=== PATIENT | female | born 2000 | race African-American/Black ===

== ENCOUNTER 2018-03-22 17:18 | Emergency (ER) | payer OTHER ==
--- NOTE | 2018-03-22 17:26 | PDOC ---
Rapid Medical Evaluation Chief Complaint: Respiratory Time Seen by Provider: 03/22/18 17:24 Medical Evaluation: 03/22/18 17:24 18 year old female with nasal confection, cough, bodyache x 3 days. denies fever / chills. PE: patient alert ox3. + nasal congestion A: URI P: patient to fast track for further management of care. Discharge Disposition - Diagnosis URI (upper respiratory infection) Qualifiers: URI type: unspecified viral URI Qualified Code(s): J06.9 - Acute upper respiratory infection, unspecified - Referrals - Patient Instructions - Post Discharge Activity
[2018-03-22 17:29] VITALS: BP 100/64; PULSE 102; TEMP 99.2; BMI 18.3
--- NOTE | 2018-03-22 18:07 | PDOC ---
History of Present Illness - General Chief Complaint: Respiratory Stated Complaint: BODYACHES, HEADACHE,COUGHING Time Seen by Provider: 03/22/18 17:24 History Source: Patient Exam Limitations: No Limitations - History of Present Illness Initial Comments: 03/22/18 18:04 c/o nasal congestion body aches for 2 days, no fever, pt states she called out of work needs a note for today and tomoroow. Pt denies SOB no abd pain . Past History - Past Medical History Allergies/Adverse Reactions: Allergies Allergy/AdvReac Type Severity Reaction Status Date / Time No Known Allergies Allergy Verified 03/22/18 17:25 Home Medications: Ambulatory Orders Fluticasone Prop 0.05% Nasal [Flonase -] 1 - 2 spray NS DAILY #1 spray.pump 01/30 Loratadine [Claritin -] 10 mg PO DAILY #7 tablet 03/22/18 COPD: No DVT: No Dementia: No - Immunization History Immunization Up to Date: Yes - Suicide/Smoking/Psychosocial Hx Smoking History: Never smoked Have you smoked in the past 12 months: No Information on smoking cessation initiated: No Drug/Substance Use Hx: Yes (MARIJUANA) Substance Use Type: Marijuana *Physical Exam - Vital Signs Last Vital Signs Temp Pulse Resp BP Pulse Ox 99.2 F 102 H 16 100/64 99 03/22/18 17:25 03/22/18 17:25 03/22/18 17:25 03/22/18 17:25 03/22/18 17:25 - Physical Exam General Appearance: Yes: Nourished, Appropriately Dressed HEENT: positive: EOMI, RYAN, TMs Normal, Pharynx Normal, Nasal Congestion. negative: Rhinorrhea Neck: positive: Supple. negative: Lymphadenopathy (R), Lymphadenopathy (L), Tender lateral Respiratory/Chest: positive: Lungs Clear, Normal Breath Sounds. negative: Chest Tender Cardiovascular: positive: Regular Rhythm, Regular Rate Gastrointestinal/Abdominal: positive: Normal Bowel Sounds, Soft. negative: Tender Musculoskeletal: positive: Normal Inspection Extremity: positive: Normal Capillary Refill, Normal Inspection, Normal Range of Motion Integumentary: positive: Normal Color, Dry, Warm Neurologic: positive: Fully Oriented, Alert, Normal Mood/Affect, Normal Response , Motor Strength 5/5 *DC/Admit/Observation/Transfer Diagnosis at time of Disposition: URI (upper respiratory infection) Qualifiers: URI type: unspecified viral URI Qualified Code(s): J06.9 - Acute upper respiratory infection, unspecified - Discharge Dispostion Disposition: HOME Condition at time of disposition: Good - Prescriptions Prescriptions: Fluticasone Prop 0.05% Nasal [Flonase -] 1 - 2 spray NS DAILY #1 spray.pump Loratadine [Claritin -] 10 mg PO DAILY #7 tablet - Referrals Referrals: Sara Bose [Primary Care Provider] - - Patient Instructions Additional Instructions: use the flonase nasal spray as directed, also take claritin drink pleanty of fluids take ibuprofen (over the counter advil, motrin ) for headache and body aches tea with honey and lemon return if any worse otherwise see your doctor next week - Post Discharge Activity Forms/Work/School Notes: Back to Work
== END 2018-03-22 18:20 | disposition home or self-care (01) ==
LOC: JERFT 17:18
DX: J06.9 Acute upper respiratory infection, unspecified (principal); B97.89 Other viral agents as the cause of diseases classified elsewhere
CPT/HCPCS: 99281-25

== ENCOUNTER 2019-05-03 13:41 | Emergency (ER) | payer OTHER ==
[2019-05-03 13:56] VITALS: BP 119/83; PULSE 75; TEMP 98.2; BMI 19.2
--- NOTE | 2019-05-03 14:18 | PDOC ---
History of Present Illness - General Chief Complaint: Ear Problem Stated Complaint: RT EAR TISSUE STUCK INSIDE Time Seen by Provider: 05/03/19 14:04 History Source: Patient Exam Limitations: No Limitations - History of Present Illness Is this a multiple visit Asthma Patient?: No Timing/Duration: reports: getting worse Severity: reports: mild Past History - Travel Traveled outside of the country in the last 30 days: No Close contact w/someone who was outside of country & ill: No - Past Medical History Allergies/Adverse Reactions: Allergies Allergy/AdvReac Type Severity Reaction Status Date / Time No Known Allergies Allergy Verified 05/03/19 13:52 Home Medications: Ambulatory Orders Fluticasone Prop 0.05% Nasal [Flonase -] 1 - 2 spray NS DAILY #1 spray.pump 01/30 Loratadine [Claritin -] 10 mg PO DAILY #7 tablet 03/22/18 COPD: No DVT: No Dementia: No - Immunization History Immunization Up to Date: Yes - Psycho Social/Smoking Cessation Hx Smoking History: Never smoked Have you smoked in the past 12 months: No Hx Alcohol Use: No Drug/Substance Use Hx: No Substance Use Type: Marijuana *Physical Exam - Vital Signs Last Vital Signs Temp Pulse Resp BP Pulse Ox 98.2 F 75 17 119/83 98 05/03/19 13:52 05/03/19 13:52 05/03/19 13:52 05/03/19 13:52 05/03/19 13:52 - Physical Exam General Appearance: Yes: Nourished, Appropriately Dressed. No: Apparent Distress HEENT: positive: RYAN, Normal ENT Inspection, Pharynx Normal, Nasal Congestion, Rhinorrhea. negative: TMs Normal (Left TM intact with good visualization, and johnson visible . unable to visualize right TM due to occlusion with a white paper substance consistent with Kleenex) Neck: positive: Supple, Lymphadenopathy (R), Lymphadenopathy (L). negative: Tender Respiratory/Chest: positive: Lungs Clear Gastrointestinal/Abdominal: positive: Soft. negative: Tender Integumentary: positive: Normal Color, Dry, Warm Neurologic: positive: telemetry registered nurse II-XII NML intact, Fully Oriented, Alert, Normal Mood/ Affect, Normal Response, Motor Strength 5/5 Discharge - Discharge Information Problems reviewed: Yes Clinical Impression/Diagnosis: Foreign body in right ear Qualifiers: Encounter type: initial encounter Qualified Code(s): T16.1XXA - Foreign body in right ear, initial encounter Condition: Stable Disposition: HOME - Admission No - Follow up/Referral - Patient Discharge Instructions Patient Printed Discharge Instructions: DI for Removal of Foreign Body From Ear Additional Instructions: Rest, lots of fluids; water, teas, soups Hot wet soaks to ear/hot packs may help relieve some pain Continue ibuprofen or Tylenol for pain and fevers followup with private physician / ENT doctor in 2-3 days Return to emergency department or see private physician immediately for swelling , redness, from ears, or fevers, - Post Discharge Activity
== END 2019-05-03 14:30 | disposition home or self-care (01) ==
LOC: JERFT 13:41
DX: T16.1XXA Foreign body in right ear, initial encounter (principal); X58.XXXA Exposure to other specified factors, initial encounter; Y93.89 Activity, other specified; Y92.89 Other specified places as the place of occurrence of the external cause; Y99.8 Other external cause status
CPT/HCPCS: 99281-25

== ENCOUNTER 2021-06-28 16:46 | Emergency (ER) | payer OTHER ==
[2021-06-28 17:10] VITALS: BP 108/68; PULSE 89; TEMP 98.2; BMI 20.1
== END 2021-06-28 18:26 | disposition home or self-care (01) ==
LOC: JERFT 16:46
DX: L03.111 Cellulitis of right axilla (principal); L03.112 Cellulitis of left axilla
CPT/HCPCS: 99283-25

== ENCOUNTER 2021-07-07 11:01 | Emergency (ER) | payer OTHER ==
[2021-07-07 11:55] VITALS: BP 111/78; PULSE 89; TEMP 98; BMI 20.7
[2021-07-07] MEDS ORDERED: ONDANSETRON 4 MG/2 ML VIAL IVPUSH ONE (12:39)
[2021-07-07] MEDS ORDERED: SODIUM CHLORIDE 1,000 ML IV STA (12:39)
[2021-07-07] MEDS ORDERED: FAMOTIDINE 20 MG/50 ML IVPB 20 MG/50 ML MG IVPB ONE ×2 (12:42→12:53)
[2021-07-07] MEDS ORDERED: ONDANSETRON 4 MG/2 ML VIAL ONE (12:53)
[2021-07-07 13:16] LABS: HEMATOCRIT 36.1 % (32.4-45.2); HEMOGLOBIN 12.1 GM/dL (10.7-15.3); MCH 27.8 pg (25.7-33.7); MCHC 33.5 g/dl (32.0-36.0); MEAN CELL VOLUME 82.9 fl (80-96); MEAN PLT VOLUME 7.7 fl (7.5-11.1); PLATELET COUNT 343 10^3/uL (134-434); RBC 4.36 M/mm3 (3.60-5.2); RDW 12.9 % (11.6-15.6); WHITE BLOOD COUNT 4.2 K/mm3 (4.0-10.0)
[2021-07-07 13:43] LABS: CALCIUM 9.5 mg/dL (8.5-10.1)
[2021-07-07 13:44] LABS: ALBUMIN 3.9 g/dl (3.4-5.0); BLOOD UREA NITROGEN 13.3 mg/dL (7-18)
[2021-07-07 13:47] LABS: CREATININE 0.9 mg/dL (0.55-1.3)
[2021-07-07 13:49] LABS: TOT PROT 8.4 g/dl (6.4-8.2)
[2021-07-07 13:52] LABS: BILIRUBIN,TOTAL 0.3 mg/dL (0.2-1)
[2021-07-08 07:08] LABS: SARS-CoV-2 NAA Detected (Not Detected)
== END 2021-07-07 17:58 | disposition home or self-care (01) ==
LOC: JER 11:01
PROC: 3E033GC Introduction of Other Therapeutic Substance into Peripheral Vein, Percutaneous Approach (ICD-10-PCS; principal; 2021-07-07)
DX: K52.9 Noninfective gastroenteritis and colitis, unspecified (principal); J06.9 Acute upper respiratory infection, unspecified
CPT/HCPCS: 36415; 80053; 83690; 85027; 99284-25; C9803; U0003; U0005

== ENCOUNTER 2023-07-28 16:12 | Emergency (ER) | payer OTHER ==
[2023-07-28 16:20] VITALS: BP 98/57; PULSE 74; RESP 18; TEMP 98.5; BMI 20.7
[2023-07-28 17:32] LABS: EPI CELLS >36 /uL (0-25.1); HYALINE CASTS 3 /uL (0-3.1); PH,URINE 5.5 (5.0-8.0); URINE APPEARANCE CLEAR; URINE BACTERIA 737 /uL (0-1359); URINE BILIRUBIN NEGATIVE (NEGATIVE); URINE COLOR YELLOW; URINE GLUCOSE (UA) NEGATIVE (NEGATIVE); URINE KETONE NEGATIVE (NEGATIVE); URINE LEUK ESTERASE NEGATIVE (NEGATIVE); URINE NITRITE NEGATIVE (NEGATIVE); URINE PROTEIN 1+ (NEGATIVE); URINE RBC 78 /uL (0-23.9); URINE UROBILINOGEN 0.2 mg/dL (0.2-1.0); URINE WBC 43 /uL (0-25.8)
[2023-07-28] MEDS ORDERED: NITROFURANTOIN MONOHYD/M-CRYST 100 MG CAPSULE PO ONE (17:54)
[2023-07-28] MEDS ORDERED: NITROFURANTOIN MACROCRYSTAL 50 MG CAPSULE (FP) ONE (18:06)
== END 2023-07-28 18:07 | disposition home or self-care (01) ==
LOC: JERFT 16:12
DX: R30.0 Dysuria (principal); N39.0 Urinary tract infection, site not specified
CPT/HCPCS: 81003; 84703; 87086; 99283-25

== ENCOUNTER 2025-02-25 18:56 | Emergency (ER) | payer OTHER ==
[2025-02-25 19:12] VITALS: TEMP 98.9; BMI 24.5
[2025-02-25] MEDS ORDERED: ONDANSETRON 4 MG/2 ML VIAL ONE (21:06)
[2025-02-25] MEDS ORDERED: ACETAMINOPHEN INJECTION 100 ML ONE (21:06)
[2025-02-25 21:07] LABS: ABSOLUTE IMMATURE GRANULOCYTES 0.02 x10^3/uL (0.0-0.031); BASOPHILS # 0.03 x10^3/uL (0.01-0.08); EOSINOPHIL % 1.2 % (0.7-5.8); EOSINOPHILS # 0.10 x10^3/uL (0.04-0.36); MCHC 31.6 g/dl (32.2-35.5); MEAN CELL VOLUME 89.1 fl (79.4-94.8); MEAN PLT VOLUME 9.5 fl (9.4-12.3); MONOCYTE # 1.08 x10^3/uL (0.24-0.86); MONOCYTE % 12.5 % (4.7-12.5); RDW 12.3 % (12.1-16.5)
[2025-02-25] MEDS: ACETAMINOPHEN 1000 MG/100 ML BAG IVPB ONE (21:18)
[2025-02-25] MEDS: LACTATED RINGERS SOLUTION 1000 ML INFUS.BAG IV ONE (21:18)
[2025-02-25] MEDS: ONDANSETRON 4 MG/2 ML VIAL IVPUSH ONE (21:19)
[2025-02-25 21:30] LABS: GLUCOSE,RANDOM 90.0 mg/dL (74-106)
[2025-02-25 21:31] LABS: TOT PROT 7.5 g/dl (6.4-8.2)
[2025-02-25 21:33] LABS: ALK PHOS 42.0 U/L (40-150); CO2 24.0 mmol/L (21-32)
[2025-02-25 21:36] LABS: CREATININE 1.24 mg/dL (0.55-1.3); EPI CELLS 12 /uL (0-25.1); HYALINE CASTS 0 /uL (0-3.1); SGOT/AST 34.0 U/L (5-34); SGPT/ALT 12.0 U/L (0-55); URINE APPEARANCE CLOUDY; URINE BACTERIA 49 /uL (0-1359); URINE BILIRUBIN NEGATIVE (NEGATIVE); URINE COLOR YELLOW; URINE GLUCOSE (UA) NEGATIVE (NEGATIVE); URINE KETONE 1+ (NEGATIVE); URINE LEUK ESTERASE 1+ (NEGATIVE); URINE NITRITE NEGATIVE (NEGATIVE); URINE PROTEIN TRACE (NEGATIVE); URINE RBC 18 /uL (0-23.9); URINE UROBILINOGEN 0.2 mg/dL (0.2-1.0); URINE WBC 40 /uL (0-25.8)
[2025-02-25 23:23] VITALS: BP 111/65; PULSE 63; RESP 14
[2025-02-25] MEDS ORDERED: FLUCONAZOLE 150 MG TABLET PO ONE (23:23)
[2025-02-25] MEDS: FLUCONAZOLE 50 MG TABLET PO ONE (23:41)
== END 2025-02-26 00:27 | disposition home or self-care (01) ==
LOC: JER 18:56
PROC: 3E033NZ Introduction of Analgesics, Hypnotics, Sedatives into Peripheral Vein, Percutaneous Approach (ICD-10-PCS; principal; 2025-02-25)
PROC: 3E033GC Introduction of Other Therapeutic Substance into Peripheral Vein, Percutaneous Approach (ICD-10-PCS; 2025-02-25)
DX: R10.84 Generalized abdominal pain (principal); R11.2 Nausea with vomiting, unspecified; R19.7 Diarrhea, unspecified; R68.83 Chills (without fever); N92.6 Irregular menstruation, unspecified; B37.31 Acute candidiasis of vulva and vagina
CPT/HCPCS: 36415; 76705-TC; 80053; 81003; 84703; 85025; 87086; 87491; 87591; 87661; 99285-25